=== PATIENT | male | born 1985 | race Caucasian/White ===

== ENCOUNTER 2017-02-28 06:55 | Emergency (ER) | payer OTHER ==
[2017-02-28] MEDS ORDERED: Ondansetron INJ* 2 MG/ML VIAL IV ONE (08:00)
[2017-02-28] MEDS: NS 0.9% 1000 ML* 2,000 ML IV ONE (08:12)
[2017-02-28 08:25] LABS: Hematocrit 43 % (42-52); Hemoglobin 14.4 g/dl (14.0-18.0); Mean Corpuscular HGB Conc 34 g/dl (31-36); Mean Corpuscular Hemoglobin 30 pg (27-31); Mean Corpuscular Volume 89 fL (80-94); Mean Platelet Volume 8 um3 (7.4-10.4); Red Blood Count 4.81 10^6/ul (4.0-5.4); Red Cell Distribution Width 13 % (10.5-15); White Blood Count 8.5 10^3/ul (3.5-10.8)
[2017-02-28 08:40] LABS: ALT 41 U/L (7-52); AST 40 U/L (13-39); Albumin 4.6 g/dL (3.2-5.2); Alkaline Phosphatase 56 U/L (34-104); Amylase 33 U/L (29-103); Anion Gap 11 mmol/L (2-11); BUN/Creatinine Ratio 23.3 (8-20); Blood Urea Nitrogen 20 mg/dL (6-24); C Reactive Protein 2.27 mg/L (< 5.00); CO2 Carbon Dioxide 23 mmol/L (22-32); Calcium 9.4 mg/dL (8.6-10.3); Chloride 100 mmol/L (101-111); EGFR African American 133.4 (>60); EGFR Non-African American 103.7 (>60); Globulin 2.4 g/dL (2-4); Glucose 81 mg/dL (70-100); Lipase < 10 U/L (11.0-82.0); Potassium 3.9 mmol/L (3.5-5.0); Sodium 134 mmol/L (133-145)
[2017-02-28 10:43] VITALS: BP 109/58
--- NOTE | 2017-02-28 19:01 | ED ---
Hallie Kenyon Seung-Jae, scribed for Victor Hugo Thompson MD on 02/28/17 at 1657 . Complex/Multi-Sys Presentation - HPI Summary HPI Summary: Pt is a 31 y/o M presenting to the ED with c/o nausea and vomiting. The onset was from last night and states that he has not been able to hold down water and didn't have much to eat yesterday (02/27/17). Associated Sx are fever, dehydration, chills, and some vision change in which he saw "objects converge together". He denies diarrhea, blood in vomit, pain in abd. Pt denies smoking and states to drink rarely. He has had no travelling experience recently. He is not currently taking medications and has not been abusing drugs. - History Of Current Complaint Chief Complaint: EDNauseaVomitDiarrh Time Seen by Provider: 02/28/17 07:38 Hx Obtained From: Patient Onset/Duration: Sudden Onset, Lasting Hours Timing: Intermittent, Lasting: Associated Signs And Symptoms: Positive: Nausea, Vomiting, Fever, Other - positive dehydration, chills, hallucinations. Negative: Hemoptysis, Chest Pain , Diarrhea, Abdominal Pain - Allergies/Home Medications Allergies/Adverse Reactions: Allergies Allergy/AdvReac Type Severity Reaction Status Date / Time No Known Allergies Allergy Verified 02/28/17 07:07 PMH/Surg Hx/FS Hx/Imm Hx Previously Healthy: Yes - Pt denies any PMHx Infectious Disease History: No Infectious Disease History: Denies: Traveled Outside the [place] in Last 30 Days - Family History Known Family History: Negative: Cardiac Disease - Social History Alcohol Use: Rare Substance Use Type: Reports: None Smoking Status (MU): Never Smoked Tobacco Review of Systems Positive: Fever, Chills Positive: Other - visual change Positive: Vomiting, Nausea. Negative: Abdominal Pain, Diarrhea, Other - blood in vomit All Other Systems Reviewed And Are Negative: Yes Physical Exam - Summary Physical Exam Summary: The patient is well-nourished in no acute distress and in no acute pain. The skin is somewhat too dry and skin turbidity decreased slightly. HEENT: The head is normocephalic and atraumatic. The pupils are equal and reactive. The conjunctivae are clear and without drainage. Nares are patent and without drainage. Mouth reveals moist mucous membranes and the throat is without erythema and exudate. The external ears are intact. The ear canals are patent and without drainage. The tympanic membranes are intact. Neck is supple with full range of motion and non-tender. There are no carotid bruits. There is no neck vein distension. Respiratory: Chest is non-tender. Lungs are clear to auscultation and breath sounds are symmetrical and equal. Cardiovascular: Hear is regular rate and rhythm. There is no murmur or rub auscultated. There is no peripheral edema and pulses are symmetrical and equal. Abdomen: The abdomen is soft and non-tender. There are normal bowel sounds heard in all four quadrants and there is no organomegaly palpated. Musculoskeletal: There is no back pain noted. Extremities are non-tender with full range of motion. There is good capillary refill. There is no peripheral edema or calf tenderness elicited. Neurological: Patient is alert and oriented to person, place and time. The patient has symmetrical motor strength in all four extremities. Cranial nerves are grossly intact. Deep tendon reflexes are symmetrical and equal in all four extremities. Psychiatric: The patient has an appropriate affect and does not exhibit any anxiety or depression. Triage Information Reviewed: Yes Vital Signs On Initial Exam: Initial Vitals Temp Pulse Resp BP Pulse Ox 98.4 F 78 17 106/61 100 02/28/17 07:02 02/28/17 07:02 02/28/17 07:02 02/28/17 07:02 02/28/17 07:02 Vital Signs Reviewed: Yes - [place] Coma Scale Coma Scale Total: 15 Diagnostics - Vital Signs Vital Signs Temp Pulse Resp BP Pulse Ox 02/28/17 07:06 98.4 F 90 19 106/61 100 02/28/17 07:02 98.4 F 78 17 106/61 100 - Laboratory Lab Results: Lab Results 02/28/17 02/28/17 02/28/17 Range/Units 08:10 08:10 08:10 WBC 8.5 (3.5-10.8) 10^3/ul RBC 4.81 (4.0-5.4) 10^6/ul Hgb 14.4 (14.0-18.0) g/dl Hct 43 (42-52) % MCV 89 (80-94) fL MCH 30 (27-31) pg MCHC 34 (31-36) g/dl RDW 13 (10.5-15) % Plt Count 253 (150-450) 10^3/ul MPV 8 (7.4-10.4) um3 Neut % (Auto) 88.8 H (38-83) % Lymph % (Auto) 8.4 L (25-47) % [place] % (Auto) 2.5 (1-9) % Eos % (Auto) 0 (0-6) % Baso % (Auto) 0.3 (0-2) % Absolute Neuts (auto) 7.6 (1.5-7.7) 10^3/ul Absolute Lymphs (auto) 0.7 L (1.0-4.8) 10^3/ul Absolute Monos (auto) 0.2 (0-0.8) 10^3/ul Absolute Eos (auto) 0 (0-0.6) 10^3/ul Absolute Basos (auto) 0 (0-0.2) 10^3/ul Absolute Nucleated RBC 0 10^3/ul Nucleated RBC % 0 Sodium 134 (133-145) mmol/L Potassium 3.9 (3.5-5.0) mmol/L Chloride 100 L (101-111) mmol/L Carbon Dioxide 23 (22-32) mmol/L Anion Gap 11 (2-11) mmol/L BUN 20 (6-24) mg/dL Creatinine 0.86 (0.67-1.17) mg/dL Est GFR ( Amer) 133.4 (>60) Est GFR (Non-Af Amer) 103.7 (>60) BUN/Creatinine Ratio 23.3 H (8-20) Glucose 81 (70-100) mg/dL Lactic Acid 1.1 (0.5-2.0) mmol/L Calcium 9.4 (8.6-10.3) mg/dL Total Bilirubin 1.60 H (0.2-1.0) mg/dL AST 40 H (13-39) U/L ALT 41 (7-52) U/L Alkaline Phosphatase 56 (34-104) U/L C-Reactive Protein 2.27 (< 5.00) mg/L Total Protein 7.0 (6.4-8.9) g/dL Albumin 4.6 (3.2-5.2) g/dL Globulin 2.4 (2-4) g/dL Albumin/Globulin Ratio 1.9 (1-3) Amylase 33 (29-103) U/L Lipase < 10 L (11.0-82.0) U/L Result Diagrams: 02/28/17 08:10 02/28/17 08:10 Lab Statement: Any lab studies that have been ordered have been reviewed, and results considered in the medical decision making process. Re-Evaluation - Re-Evaluation First Eval Re-Evaluation Time: 10:25 Change: Improved Complex Multi-Symp Course/Dx - Diagnoses Differential Diagnoses/HQI/PQRI: Metabolic Abnormality, Other - dehydration, gastritis, food poisoning Provider Diagnoses: Gastritis, Dehydration Discharge - Discharge Plan Condition: Stable Disposition: HOME Patient Education Materials: Ondansetron (By mouth), Dehydration (ED), Gastritis (ED) [facility]Other] Non Staff,Doctor [Primary Care Provider] - 2 Days Additional Instructions: Please be sure to follow up with [place] [facility] The documentation as recorded by the Hallie prieto Seung-Jae accurately reflects the service I personally performed and the decisions made by , Victor Hugo Thompson MD.
== END 2017-02-28 10:46 | disposition home or self-care (01) ==
LOC: ED 06:55
DX: K29.70 Gastritis, unspecified, without bleeding (principal); E86.0 Dehydration; R50.9 Fever, unspecified; R44.3 Hallucinations, unspecified
CPT/HCPCS: 36415; 80053; 82150; 83605; 83690; 85025; 86140; 96361; 96374; 99283

== ENCOUNTER 2018-03-01 16:24 | Emergency (ER) | payer OTHER ==
[2018-03-01 16:53] VITALS: BP 132/77
--- NOTE | 2018-03-01 18:19 | UC ---
Back Pain HPI - HPI Summary HPI Summary: Patient is a 32-year-old otherwise healthy male presenting to the with complaint of left sided upper back injury after carrying mail this afternoon. 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 He endorses pain just to the left of his upper thoracic column over his left rhomboid. Symptoms are aggravated with movement and alleviated with rest. He has not tried any [id number]-mwi-haxmuak medications or heat for relief. He states he did not have any other noticeable injury, just from carrying heavy bags during the day. - History of Current Complaint Chief Complaint: UCBackPain Stated Complaint: BACK PAIN Time Seen by Provider: 03/01/18 17:09 Hx Obtained From: Patient Onset/Duration: Sudden Onset Timing: Constant Severity Initially: Moderate Severity Currently: Moderate Pain Intensity: 4 Pain Scale Used: 0-10 Numeric Back Pain: Is Discrete @ - left upper back pain Character: Aching Aggravating Factor(s): Movement Alleviating Factor(s): Rest, Position Associated Signs And Symptoms: Negative: Swelling, Redness, Bruising - Risk Factors AAA Risk Factors: Negative TAD Risk Factors: Negative Cauda Equina Risk Factors: Negative Epidural Abscess Risk Factors: Negative - Allergies/Home Medications Allergies/Adverse Reactions: Allergies Allergy/AdvReac Type Severity Reaction Status Date / Time No Known Allergies Allergy Verified 03/01/18 16:53 Home Medications: Home Medications NK [No Home Medications Reported] 03/01/18 [History Confirmed 03/01/18] PMH/Surg Hx/FS Hx/Imm Hx Previously Healthy: Yes - Surgical History Surgical History: None Surgery Procedure, Year, and Place: denies - Family History Known Family History: Positive: None Negative: Cardiac Disease, Hypertension, Renal Disease, Respiratory Disease - Social History Occupation: Employed Full-time Lives: With Family Alcohol Use: Occasionally Substance Use Type: None Smoking Status (MU): Never Smoked Tobacco Review of Systems Constitutional: Negative Skin: Negative Respiratory: Negative Cardiovascular: Negative Motor: Negative Neurovascular: Negative Musculoskeletal: Arthralgia - left sided upper back tenderness to deep palpation Neurological: Negative, Headache Is Patient Immunocompromised?: No All Other Systems Reviewed And Are Negative: Yes Physical Exam Triage Information Reviewed: Yes Appearance: Well-Appearing, No Pain Distress, Well-Nourished Vital Signs: Initial Vital Signs Temp 98.1 F 03/01/18 16:48 Pulse 63 03/01/18 16:48 Resp 20 03/01/18 16:48 BP 132/77 03/01/18 16:48 Pulse Ox 100 03/01/18 16:48 Vital Signs Reviewed: Yes Eye Exam: Normal Eyes: Positive: Conjunctiva Clear Neck exam: Normal Neck: Positive: Supple, No Lymphadenopathy Respiratory Exam: Normal Respiratory: Positive: Chest non-tender Cardiovascular Exam: Normal Musculoskeletal: Positive: Strength Intact - no limitations with strength or ROM to the upper extremities, ROM Intact Neurological Exam: Normal Neurological: Positive: Alert Psychological: Positive: Normal Response To Family Skin Exam: Normal Back Pain Course/Dx - Course Course Of Treatment: Denies any pain directly over the spine. I discussed with the patient that due to the location and mechanism of injury, spine most likely not involved. He has no tenderness over the spine area. This is likely due to a muscular strain. I have advised heat and ibuprofen to the area. Filled out Workmen's Comp. He is able to return immediately back to work without restrictions. He will follow up with his PCP if symptoms worsen at this time. - Differential Dx/Diagnosis Differential Diagnosis/HQI/PQRI: Strain, Sprain Provider Diagnoses: Muscular Back Strain Discharge - Sign-Out/Discharge Documenting (check all that apply): Patient Departure - Discharge Plan Condition: Stable Disposition: HOME Patient Education Materials: Muscle Strain (ED) Referrals: No Primary Care Phys,NOPCP [Primary Care Provider] - Additional Instructions: Ibuprofen 600mg three times daily Heat to the area Tennis ball to the area for massage Gentle stretches - Billing Disposition and Condition Condition: STABLE Disposition: Home
== END 2018-03-01 18:28 | disposition home or self-care (01) ==
LOC: UCEAST 16:24
DX: S29.012A Strain of muscle and tendon of back wall of thorax, initial encounter (principal); X50.0XXA Overexertion from strenuous movement or load, initial encounter; Y92.9 Unspecified place or not applicable
CPT/HCPCS: 99211; G0463

== ENCOUNTER 2019-01-17 14:57 | Emergency (ER) | payer OTHER ==
[2019-01-17 15:16] VITALS: BP 111/62
[2019-01-17] MEDS: Tetan/Diph/Pertus SYR(Tdap)* 0.5 ML SYR(BOOSTRIX) use SYR IM ONE (16:38)
[2019-01-17] MEDS: Mupirocin 2% OINT* TUBE TOPICAL ONE (16:39)
--- NOTE | 2019-01-17 16:39 | UC ---
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 apparently up to date Pts last td 2005 no bleeding able to bear wt - History of Current Complaint Chief Complaint: UCBiteInjury Stated Complaint: DOG BITE Time Seen by Provider: 01/17/19 16:20 Hx Obtained From: Patient Severity Currently: Moderate Severity Initially: Mild Pain Intensity: 3 Pain Scale Used: 0-10 Numeric Onset/Duration: Sudden Onset Type of Bite: Animal Has Animal Been Immunized?: Yes Character: Abrasion/Laceration - abrasions (superficial) with some associated swelling Aggravating Factor(s): Other - wt bearing Alleviating Factor(s): Rest, Other - ice Associated Signs And Symptoms: Positive: Negative Animal Available for Observation: Yes Animal Control Notified: Yes Body - Head: 1 - slight swelling, very superficial abrasions - Risk Factors Infection/Sepsis Risk Factors: Negative - Allergies/Home Medications Allergies/Adverse Reactions: Allergies Allergy/AdvReac Type Severity Reaction Status Date / Time No Known Allergies Allergy Verified 01/17/19 15:16 PMH/Surg Hx/FS Hx/Imm Hx Previously Healthy: Yes - Surgical History Surgical History: None Surgery Procedure, Year, and Place: denies - Family History Known Family History: Positive: None Negative: Cardiac Disease, Hypertension, Renal Disease, Respiratory Disease - Social History Alcohol Use: Occasionally Substance Use Type: None Smoking Status (MU): Never Smoked Tobacco Review of Systems All Other Systems Reviewed And Are Negative: Yes Constitutional: Positive: Negative Skin: Positive: Negative Eyes: Positive: Negative ENT: Positive: Negative Respiratory: Positive: Negative Cardiovascular: Positive: Negative Gastrointestinal: Positive: Negative Genitourinary: Positive: Negative Motor: Positive: Negative Neurovascular: Positive: Negative Musculoskeletal: Positive: Negative Neurological: Positive: Negative Psychological: Positive: Negative Physical Exam Triage Information Reviewed: Yes Appearance: Well-Appearing, No Pain Distress, Well-Nourished Vital Signs: Initial Vital Signs Temp 98.2 F 01/17/19 15:09 Pulse 68 01/17/19 15:09 Resp 17 01/17/19 15:09 BP 111/62 01/17/19 15:09 Pulse Ox 100 01/17/19 15:09 Vital Signs Reviewed: Yes Eyes: Positive: Conjunctiva Clear ENT: Positive: Hearing grossly normal. Negative: Nasal congestion, Nasal drainage, Trismus, Muffled voice, Hoarse voice Neck: Positive: Supple, Nontender Respiratory: Positive: Lungs clear, Normal breath sounds, No respiratory distress, No accessory muscle use Cardiovascular: Positive: RRR, No Murmur Musculoskeletal: Positive: Other: - see image Neurological: Positive: Alert Psychological Exam: Normal Skin Exam: Other - see image Bite Injury Course/Dx - Differential Dx/Diagnosis Provider Diagnosis: Dog bite of left lower leg, Contusion of left lower leg, Abrasion, left lower leg, initial encounter Discharge - Sign-Out/Discharge Documenting (check all that apply): Patient Departure All imaging exams completed and their final reports reviewed: No Studies - Discharge Plan Condition: Stable Disposition: HOME Patient Education Materials: Abrasion (ED), Contusion in Adults (ED) Referrals: Shady Peterson MD [Medical Doctor] - If Needed Additional Instructions: I do not anticipate any problems with this injury should you have any concerns of infection return here or see [facility] ice advil or aleve gently clean twice daily with soap and water apply thin film of bactroban twice daily - Billing Disposition and Condition Condition: STABLE Disposition: Home
== END 2019-01-17 17:00 | disposition home or self-care (01) ==
LOC: UCEAST 14:57
DX: S80.812A Abrasion, left lower leg, initial encounter (principal); W54.0XXA Bitten by dog, initial encounter; Y92.9 Unspecified place or not applicable; Y99.0 Civilian activity done for income or pay
CPT/HCPCS: 90471; 90715; 99212; G0463

== ENCOUNTER 2019-08-01 09:13 | Emergency (ER) | payer OTHER ==
[2019-08-01 09:52] LABS: ABS Basophils 0.1 10^3/ul (0-0.2); ABS Lymphocytes 1.5 10^3/ul (1.0-4.8); ABS Monocytes 0.6 10^3/ul (0-0.8); ABS Neutrophils 3.8 10^3/ul (1.5-7.7); Eosinophil % 0.6 %; Hematocrit 43 % (42-52); Hemoglobin 14.9 g/dL (14.0-18.0); Lymphocyte % 24.9 %; Mean Corpuscular HGB Conc 35 g/dL (31-36); Mean Corpuscular Hemoglobin 30 pg (27-31); Mean Corpuscular Volume 86 fL (80-94); Mean Platelet Volume 7.4 fL (7.4-10.4); Nucleated Red Blood Cells % 0.1; Platelet Count 296 10^3/uL (150-450); Red Blood Count 4.97 10^6 /uL (4.18-5.48); Red Cell Distribution Width 13 % (10-15); White Blood Count 5.9 10^3/uL (3.5-10.8)
[2019-08-01] MEDS ORDERED: Magnesium Sulfate 2 GM IV* 2 GM/50 ML BAG IVPB ONE (10:26)
[2019-08-01] MEDS ORDERED: NS 0.9% 1000 ML** 1,000 ML IV ONE (10:26)
--- NOTE | 2019-08-01 10:35 | ED ---
HPI Chest Pain - HPI Summary HPI Summary: Pt is a 33 y/o M presenting to the ED brought in by EMS from the [place] for chest pain. He states he experienced a 20-30 second episode of L anterior chest pain yesterday described as a dull, aching, squeeze, accompanied by shortness of breath and anxiety. He's had this pain before, and it is often in much shorter episodes and resolves on its own. Yesterday's episode was the most severe and the longest he has had it for. He states he was drinking about gallon of coffee at one point, then cut back on that to try and decrease the frequency of the episodes, but they did not go away. 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 Because of this, hes also been drinking more than usual, 4 drinks every few days. Noted FHx of cardiac diseases paternally. He lives alone. - History of Current Complaint Chief Complaint: EDChestPainROMI Time Seen by Provider: 08/01/19 09:16 Hx Obtained From: Patient Onset/Duration: Started Weeks Ago, Still Present Timing: Intermittent, Lasting Seconds Initial Severity: Severe Current Severity: Mild Pain Intensity: 1 Pain Scale Used: 0-10 Numeric Chest Pain Location: Left Anterior Chest Pain Radiates: No Character: Dull/Aching, Pressure/Squeezing Aggravating Factor(s): Caffeine, Alcohol, Other: - food, stress Alleviating Factor(s): Nothing Associated Signs and Symptoms: Positive: Chest Pain, Anxiety, Recent Stress, Shortness of Breath - Allergy/Home Medications Allergies/Adverse Reactions: Allergies Allergy/AdvReac Type Severity Reaction Status Date / Time No Known Allergies Allergy Verified 01/17/19 15:16 Home Medications: Home Medications NK [No Home Medications Reported] 08/01/19 [History Confirmed 08/01/19] PMH/Surg Hx/FS Hx/Imm Hx Previously Healthy: Yes Endocrine/Hematology History: Denies: Hx Diabetes, Hx Thyroid Disease Cardiovascular History: Denies: Hx Hypertension Respiratory History: Denies: Hx Asthma, Hx Chronic Obstructive Pulmonary Disease (COPD) GI History: Denies: Hx Ulcer - Surgical History Surgery Procedure, Year, and Place: denies Infectious Disease History: No Infectious Disease History: Denies: Hx Hepatitis, Hx Human Immunodeficiency Virus (HIV), Traveled Outside the US in Last 30 Days - Family History Known Family History: Positive: Cardiac Disease Negative: Hypertension, Renal Disease, Respiratory Disease - Social History Occupation: Employed Full-time Lives: Alone Alcohol Use: Occasionally Hx Substance Use: Yes Substance Use Type: Reports: Excessive Caffeine Hx Tobacco Use: No Smoking Status (MU): Never Smoked Tobacco Review of Systems Positive: Chest Pain Positive: Shortness Of Breath Positive: Anxious All Other Systems Reviewed And Are Negative: Yes Physical Exam - Summary Physical Exam Summary: Vital Signs Reviewed: Yes A+Ox3, no distress Eyes: Conjunctiva Clear, LICHA. EOM intact and full ENT: Hearing grossly normal TM x 2 clear, mmoist, uvula midline, no exudate, no erythema Neck: Positive: Supple Respiratory: Positive: No respiratory distress, No accessory muscle use + CTA throughout no w/r Cardiovascular: RRR nl s1, s2 no m/r CBT <2 sec no bruits mild chest wall pain with palpation left sternal border with direct palpation and ROM abd soft + BS nd no guarding, no distension, mild epigastric pain with deep palpation Musculoskeletal Exam: HEREDIA x 4 without difficulty Strength Intact, ROM Intact Neurological: Positive: Alert, + sensation throughout Psychological: Positive: Normal 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 Skin: Positive: no rash, no ecchymosis Triage Information Reviewed: Yes Vital Signs On Initial Exam: Initial Vitals Temp Pulse Resp BP Pulse Ox 98 F 99 16 133/80 93 08/01/19 09:14 08/01/19 09:14 08/01/19 09:14 08/01/19 09:14 08/01/19 09:14 Vital Signs Reviewed: Yes Procedures - Sedation Patient Received Moderate/Deep Sedation with Procedure: No Diagnostics - Vital Signs Vital Signs Temp Pulse Resp BP Pulse Ox 08/01/19 10:00 77 19 97 08/01/19 09:51 77 13 130/74 97 08/01/19 09:36 86 08/01/19 09:21 82 25 94 08/01/19 09:14 98 F 99 16 133/80 93 - Laboratory Lab Results: Lab Results 08/01/19 08/01/19 08/01/19 Range/Units 09:42 09:42 09:42 WBC 5.9 (3.5-10.8) 10^3/uL RBC 4.97 (4.18-5.48) 10^6 /uL Hgb 14.9 (14.0-18.0) g/dL Hct 43 (42-52) % MCV 86 (80-94) fL MCH 30 (27-31) pg MCHC 35 (31-36) g/dL RDW 13 (10-15) % Plt Count 296 (150-450) 10^3/uL MPV 7.4 (7.4-10.4) fL Neut % (Auto) 64.2 % Lymph % (Auto) 24.9 % [place] % (Auto) 9.4 % Eos % (Auto) 0.6 % Baso % (Auto) 0.9 % Absolute Neuts (auto) 3.8 (1.5-7.7) 10^3/ul Absolute Lymphs (auto) 1.5 (1.0-4.8) 10^3/ul Absolute Monos (auto) 0.6 (0-0.8) 10^3/ul Absolute Eos (auto) 0.0 (0-0.6) 10^3/ul Absolute Basos (auto) 0.1 (0-0.2) 10^3/ul Absolute Nucleated RBC 0.0 10^3/ul Nucleated RBC % 0.1 D-Dimer, Quantitative < 200 (Less Than 230) ng/mL Sodium Pending Potassium Pending Chloride 106 (101-111) mmol/L Carbon Dioxide 26 (22-32) mmol/L Anion Gap Pending BUN 29 H (6-24) mg/dL Creatinine 0.64 L (0.67-1.17) mg/dL Est GFR ( Amer) 174.3 (>60) Est GFR (Non-Af Amer) 144.0 (>60) BUN/Creatinine Ratio 45.3 H (8-20) Glucose 97 (70-100) mg/dL Calcium Pending Magnesium 1.5 L (1.9-2.7) mg/dL Total Bilirubin 0.40 (0.2-1.0) mg/dL AST 20 (13-39) U/L ALT 21 (7-52) U/L Alkaline Phosphatase 59 (34-104) U/L Troponin I 0.00 (<0.03) ng/mL Total Protein 5.7 L (6.4-8.9) g/dL Albumin 3.8 (3.2-5.2) g/dL Globulin 1.9 L (2-4) g/dL Albumin/Globulin Ratio 2.0 (1-3) Lipase < 10 L (11.0-82.0) U/L Result Diagrams: 08/01/19 09:42 08/01/19 09:42 Lab Statement: Any lab studies that have been ordered have been reviewed, and results considered in the medical decision making process. - Radiology CXR Radiology Interpretation Completed By: Radiologist Summary of Radiographic Findings: No active cardiopulmonary disease. ED physician has reviewed this report. - EKG 0920 Cardiac Rate: NL - 80bpm EKG Rhythm: Sinus Rhythm ST Segment: Normal Ectopy: None Summary of EKG Findings: EKG at 0920 shows NSR at 80bpm with no acute ST/T-wave changes. No STEMI. Dr. Haile has reviewed and interpreted this EKG. Re-Evaluation - Re-Evaluation First Eval Comment: reviewed labs with pt - trop and ddimer wnl. Recommend pepcid. diet modification. strict return precautions. pt comfortable and in agreement. Of note - pt's lab results initially reported in error - Magnesium replacement was ordered based on these result - subsequently cancelled - incident report entered by special agent in charge, lab management notified Chest Pain Course/Dx - Course Course Of Treatment: Pt present by EMS from [place] clinic. Pt with fleeting episodes of left sided chest burnig pain x several days. Last episode last eli. No sob, diaphoresis, nasuea. not related to food. states previously used antacid , but hasn't in awhile STates has poor diet and increased alcohol intake - no concern followig CAGE questions. Suspect sx more likely GErD but will check ekg , trop, ddimer. will give pepcid, maalox. cxr. reassess. pt comfortable and in agreement - Diagnoses Provider Diagnoses: Chest pain, unspecified Discharge ED - Sign-Out/Discharge Documenting (check all that apply): Patient Departure - Discharge Plan Condition: Stable Disposition: HOME Patient Education Materials: Chest Pain (ED) Forms: *Work Release Referrals: Tara Díaz [Primary Care Provider] - Additional Instructions: The evaluation the emergency department today did not have any findings concerning for heart. The lab tests look severe her as well as her EKG were normal and on concerning. As discussed, you do have some family history of heart disease and recommend he follow up with your primary care about seeing a wet pan mixer and outpatient testing given the risk factors only. The doctor thinks ear pain today may be related to stomach acid. Recommendations are as follows: - Take Pepcid 20 mg once daily to help decrease stomach acid - Eat small, frequent meals throughout the day. Avoid spicy foods, acidic food , excessive caffeine, carbonated beverages, and excess alcohol - Contact her primary care provider to schedule follow-up today's visit - If your symptoms return or worsen or you have any other concerns recommended Elias Pelletier will return to emergency department. - Billing Disposition and Condition Condition: STABLE Disposition: Home - Attestation Statements Document Initiated by Aaron: Yes Documenting Scribe: Berkley Wilcox Provider For Whom Aaron is Documenting (Include Credential): Noy Haile MD. Scribe Attestation: IBerkley, scribed for Noy Haile MD. on 08/08/19 at 1243. Scribe Documentation Reviewed: Yes Provider Attestation: The documentation as recorded by the marciaibe, Berkley Wilcox accurately reflects the service I personally performed and the decisions made by me, Noy Haile MD. Status of Scribe Document: Viewed
[2019-08-01 10:49] LABS: Albumin 4.4 g/dL (3.2-5.2); Albumin/Globulin Ratio 1.9 (1-3); BUN/Creatinine Ratio 39.2 (8-20); Calcium 9.4 mg/dL (8.6-10.3); EGFR African American 147.4 (>60); EGFR Non-African American 121.8 (>60); Globulin 2.3 g/dL (2-4); Potassium 4.9 mmol/L (3.5-5.0); Total Bilirubin 0.5 mg/dL (0.2-1.0); Total Protein 6.7 g/dL (6.4-8.9)
[2019-08-01 10:51] LABS: Troponin I 0.01 ng/mL (<0.03)
[2019-08-01 10:58] VITALS: BP 116/84
[2019-08-01 11:18] LABS: TSH (Thyroid Stimulating Horm) 0.97 mcIU/mL (0.34-5.60)
== END 2019-08-01 11:33 | disposition home or self-care (01) ==
LOC: ED 09:13
DX: R07.9 Chest pain, unspecified (principal)
CPT/HCPCS: 36415; 71045; 80053; 83690; 83735; 84443; 84484; 85025; 85379; 93005; 99282